=== PATIENT | female | born 1995 | race Caucasian/White ===

== ENCOUNTER 2025-04-20 16:05 | Emergency (ER) | payer MEDICAID, SELFPAY ==
[2025-04-20 16:21] VITALS: BP 130/70; PULSE 81; RESP 18; TEMP 37.1; O2SAT 99; BMI 47.5
--- NOTE | 2025-04-20 16:28 | EDNOTE_ITS ---
ED General RME/HPI General Chief complaint: Abdominal Pain Stated complaint: ABD PAIN, NAUSEA AND DIZZINESS X 3DAYS, 7 WEEKS P Time Seen by Provider: 04/20/25 16:25 Arrival date/time: 04/20/25 16:05 CC Generalized abdominal pain HPI patient is a G4, P3 at estimated 7 weeks. Denies nausea vomiting back pain painful urination bloody urination vaginal discharge or vaginal bleeding. Dr. Cotton is the assigned [facility] she has not seen OB up to this point. No other complaints Related Data Previous Rx's ?Medication ?Instructions ?Recorded docusate sodium 100 mg capsule 100 mg PO BID PRN const ipation #14 07/16/18 caps ibuprofen 400 mg tablet 800 mg (2 x 400 mg) PO Q8H P RN See 07/16/18 Comments #30 tabs cyclobenzaprine 5 mg tablet 5 mg PO TID PRN muscle spa sm #14 10/26/19 tabs ibuprofen 800 mg tablet 800 mg PO TID PRN pain #30 t abs 10/26/19 cyclobenzaprine 5 mg tablet 5 mg PO TID PRN muscle spa sm #20 02/22/21 tabs naproxen 500 mg tablet 500 mg PO BID PRN pain #30 t abs 02/22/21 Allergies Allergy/AdvReac Type Severity Reaction Status Date / Time morphine Allergy Intermediate RASH Verified 04/20/25 16:10 Penicillins Allergy Intermediate SWELLING & Verified 04/20/25 16:10 RASH milk AdvReac Mild UPSET Verified 04/20/25 16:10 STOMACH, CRAMPS Review of Systems Review of Systems Narrative Review of Systems: GEN: No fever, no chills, no weight loss EYES: No discharge, no visual changes, no pain HEENT: No ear pain, no congestion, no sore throat PULM: No shortness of breath, no cough, no congestion CV: No chest pain, no dyspnea on exertion, no palpitations GI: No nausea, no vomiting, no diarrhea, + pain, no constipation : No frequency, no urgency, no dysuria MUSC/SKEL: No joint pain, no back pain SKIN: No rash PSYCH: No hallucinations, no depression HEME/LYMPH: No easy bleeding or bruising tendencies NEURO: No weakness, no headache Past Medical History Past Medical History NEUROLOGIC: Negative Neurological Disorders CARDIAC: Negative Cardiac Disorders or Congestive Heart Failure RESPIRATORY: Positive Asthma; Negative Chronic Obstructive Pulmonary Disease (COPD) GASTROINTESTINAL: Negative Gastrointestinal Disorders GENITOURINARY: Negative Genitourinary Disorders or Renal Disease REPRODUCTIVE: Positive Previous Pregnancies MUSCULOSKELETAL: Negative Musculoskeletal Disorders ENDOCRINE: Negative Endocrine Disorders, Diabetes Mellitus Type 1 or Diabetes Mellitus Type 2 HEMATOLOGIC: Negative Blood Disorders PSYCHO/SOCIAL: Positive Recreational Drug Use OTHER HISTORY: Positive Hospitalization; Negative Autoimmune Disease Family History FAMILY HISTORY: Positive Family Cardiac Disorders, Family Gastrointestinal Problems and Family Cancer; Negative Family Psychiatric Problems, Family Respiratory Disorders, Family Surgery or Family Anesthesia Reaction Surgical History SURGICAL: Negative Section Social History SMOKING STATUS: Never smoker SECOND HAND EXPOSURE: Yes SUBSTANCE USE: marijuana ED Exam Narrative Physical exam: [General: Morbidly obese not in any acute distress Head normocephalic HEENT: Within acceptable limits Neck is supple nontender Chest equal chest rise nontender to palpation Respiratory: Clear to auscultation no wheezes crackles or rubs CV: Rate rhythm is regular no murmurs rubs or clicks Abdomen is distended secondary to body habitus soft, diffuse generalized tenderness, no reflexive guarding no rebound tenderness. No masses positive bowel sounds all 4 quadrants Back: No CVA tenderness no spinous process tenderness from cervical spine thoracic and lumbar spine Skin: Intact no petechiae rash induration ulceration or crepitus Extremities: Moving all extremity against resistance cap refill less than 2 seconds neurosensory intact Neuro: Awake alert oriented x3 Glascow coma 15 no focal deficits] Course Quality Measures none Orders Category Date Time Status US OB transvaginal Stat Exams 04/20/25 16:56 Completed CBC Stat Lab 04/20/25 16:40 Completed CMP [Comprehensive Metabolic Panel] Stat Lab 04/20/25 16:40 Completed Lipase Stat Lab 04/20/25 16:40 Completed Urinalysis Stat Lab 04/20/25 17:10 Completed Vital Signs Vital signs: Vital Signs Temperature 98.8 F 04/20/25 16:21 Pulse Rate 81 04/20/25 16:21 Respiratory Rate 18 04/20/25 16:21 Blood Pressure 130/70 04/20/25 16:21 Pulse Oximetry (%) 99 04/20/25 16:21 Oxygen Delivery Method Room Air 04/20/25 16:21 Discharge Plan Plan Patient Disposition: HOME (Self Care) Patient condition on transfer: Stable Prescriptions/Referrals Prescriptions/Med Rec: No Action ibuprofen 400 mg Tablet 800 mg PO Q8H PRN (Reason: See Comments) Qty: 30 0RF docusate sodium 100 mg Capsule 100 mg PO BID PRN (Reason: constipation) Qty: 14 0RF ibuprofen 800 mg tablet 800 mg PO TID PRN (Reason: pain) Qty: 30 0RF cyclobenzaprine 5 mg tablet 5 mg PO TID PRN (Reason: muscle spasm) Qty: 14 0RF naproxen 500 mg tablet 500 mg PO BID PRN (Reason: pain) Qty: 30 0RF cyclobenzaprine 5 mg tablet 5 mg PO TID PRN (Reason: muscle spasm) Qty: 20 0RF Referrals: No Primary/Family,Physician [Primary Care Provider] - In 1 week Problem List Clinical Impression: Twin Patient/Caregiver Discharge Instructions Education Materials: Understanding Multiple Additional Instructions: Follow-up with your [facility] as stated in 3 days. Avoid heavy lifting avoid strenuous exercise. Print Language: Swedish Stand Alone Forms: [employer] Award Info., Work/School Release, Patient Portal Info Letter PA/CHARLY Supervising Physician PA/MANAGER PATIENT Supervising Physician: Cal Johnson ENP [facility] Clinical Information Provided by: patient Medical Records reviewed [facility] Labs/Rad/Tests considered, not ordered None Chronic Illness/Social Conditions Explain: Obesity Labs Labs: interpreted by al Lab(s) Interpretation(s): CBC shows no acute leukocytosis anemia thrombocytopenia CMP shows no significant electrolyte imbalances renal impairment transaminitis or T. bili elevation. Imaging Imaging interpretation: interpreted by al Imaging Interpretation(s): Twin gestational sacs.
--- NOTE | 2025-04-20 16:56 | XR_ITS ---
Examination: OB Transvaginal ultrasound of the pelvis, complete Technique: Transvaginal sonographic images pelvis performed using willoughby scale imaging Exam date and time: April 20, 2025, 1654 hours INDICATIONS: Mid abdominal pain beginning 3 days ago FINDINGS: Uterus 9.5 cm Twin intrauterine gestations, 2 gestational sacs, 2 yolk sacs Baby A pole 0.3 cm corresponds to 6-week 0-day gestational age Cardiac motion 119 bpm Baby B CRL 0.3 cm corresponds to 5 weeks 6 days gestational age,. Cardiac motion 112 bpm Ovaries obscured by bowel gas IMPRESSION: Viable twin intrauterine gestations
[2025-04-20 17:12] LABS: Basophils # (Auto) 0.0 Thou/mm3 (0.0-0.2); Basophils % (Auto) 0 % (0-2.5); Eosinophils # (Auto) 0.1 Thou/mm3 (0.0-0.5); Eosinophils % (Auto) 1 % (0-10); Hematocrit 39.4 % (36.0-46.0); Hemoglobin 13.0 g/dL (12.0-16.0); Immature Granulocytes Auto 0.04 Thou/mm3 (0.00-0.00); Lymphocytes # (Auto) 2.8 Thou/mm3 (1.0-4.8); Lymphocytes % (Auto) 30 % (10-50); Mean Corpuscular HGB Conc 33.0 g/dl (31.0-37.0); Mean Corpuscular Hemoglobin 28.6 pg (25.0-35.0); Mean Corpuscular Volume 87 fL (80-100); Monocytes # (Auto) 0.6 Thou/mm3 (0.0-0.8); Monocytes % (Auto) 6 % (0-12); Neutrophils # (Auto) 5.9 Thou/mm3 (1.8-7.7); Neutrophils % (Auto) 62 % (37-80); Nucleated Red Blood Cell # 0.00 Thou/mm3 (0.00-0.00); Nucleated Red Blood Cell % 0 /100 WBC (0); Platelet Count 200 Thou/mm3 (140-440); RDW Standard Deviation 40.2 fL (36.4-46.3); Red Blood Count 4.54 Miln/mm3 (4.00-5.20); White Blood Count 9.5 Thou/mm3 (3.6-11.0)
[2025-04-20 17:20] LABS: Collection Type, Urine Clean Catch
[2025-04-20 17:34] LABS: Alanine Aminotransferase 45 U/L (10-49); Albumin, Serum 4.6 gm/dL (3.5-5.0); Albumin/Globulin Ratio 1.8 (1.2-2.2); Alkaline Phosphatase 78 U/L (46-116); Anion Gap 11 (7-16); Aspartate Amino Transferase 24 U/L (0-34); BUN/Creatinine Ratio 10 Ratio (12-20); Bilirubin,Total 0.2 mg/dL (0.3-1.2); Blood Urea Nitrogen 7 mg/dL (9-23); Calcium 9.4 mg/dL (8.3-10.6); Calcium (Corrected) 9.4 mg/dL (8.5-10.1); Carbon Dioxide 23.4 mMol/L (20.0-31.0); Chloride 106 mMol/L (98-107); Creatinine (Component) 0.7 mg/dL (0.6-1.3); Estimated Creatinine Clearance 189.4 mL/min (>60); Globulin 2.6 gm/dL (2.3-3.5); Glucose 102 mg/dL (74-106); Lipase 30 U/L (12-53); Osmolality,Calculated 277 (275-295); Potassium 3.7 mMol/L (3.4-5.1); Sodium 140 mMol/L (136-145); Total Protein 7.2 gm/dL (5.7-8.2); eGFR > 60 See Note
[2025-04-20 17:52] LABS: Bacteria,Urine Rare; Bilirubin,Urine Negative (Negative); Blood,Urine Negative (Negative); Clarity,Urine Clear (Clear/Hazy); Color,Urine Lt-Yellow (Lt Yel-Yel); Glucose, Urine Negative (Negative); Ketones,Urine Trace (Negative); Leukocyte Esterase,Urine Negative (Negative); Nitrite,Urine Negative (Negative); PH,Urine 6.0 (5.0-7.0); Protein,Urine Negative (Neg - Trace); RBC,Urine 2 /hpf (0-3); Specific Gravity,Urine 1.018 (1.001-1.035); Squamous Epithelial Cell,Urine 1 /hpf (0-5); Urobilinogen,Urine Negative mg/dL (0.0-1.0); WBC,Urine 1 /hpf (0-5)
[2025-04-20 18:02] VITALS: BP 125/92; PULSE 70; RESP 19; TEMP 36.8; O2SAT 98
[2025-04-20 18:10] VITALS: BP 125/92; PULSE 70; RESP 16; TEMP 36.8; O2SAT 98
== END 2025-04-20 18:11 | disposition home or self-care (01) ==
PROVIDERS: Registered Nurse General Practice; Emergency Provider Family Medicine; PCP Family Medicine
DX: O26.899 Other specified pregnancy related conditions, unspecified trimester (principal); O30.009 Twin pregnancy, unspecified number of placenta and unspecified number of amniotic sacs, unspecified trimester; O99.210 Obesity complicating pregnancy, unspecified trimester; R10.9 Unspecified abdominal pain
CPT/HCPCS: 36415; 76817; 80053; 81001; 83690; 85025; 99283

== ENCOUNTER 2025-04-23 10:13 | Outpatient (AMB) | payer MEDICAID, SELFPAY ==
--- NOTE | 2025-04-23 10:16 | AMB.OBINITIA ---
Vital Signs 04/23/25 10:40 Height 1.78 m Height Method Stated Weight 147.077 kg Weight Measurement Method Standing Scale BMI 46.4 BP 123/89 H Blood Pressure Source Automatic Cuff Blood Pressure Location Left Upper Arm Position Sitting Respiration 18 Pulse 96 Pulse Source Monitor Temp 97.2 F Temp Source Oral Pulse Oximetry (%) 98 Oxygen Delivery Method Room Air Allergies/Home Meds Allergies & Medications Allergies morphine Allergy (Intermediate, Verified 04/23/25 11:59) RASH Penicillins Allergy (Intermediate, Verified 04/23/25 11:59) SWELLING & RASH milk Adverse Reaction (Mild, Verified 04/23/25 11:59) UPSET STOMACH, CRAMPS Intake Visit Data Collection New Patient or Established: Established Patient (seen at [facility] within 3 years) Reason for Visit:: obi Seen by Clinical Staff ONLY (RN/MA): No Engineer Assistant Required: No Do You Feel Safe at Home: Yes Authorities Contacted: N/A PCP or OBGYN visit in last 3 months: Yes Date of Last PCP or OBGYN visit: 04/20/25 Hx Now: Yes Are you currently on any form of Control: No Last menstrual period: 03/05/25 Pain Present Currently: Yes Pain Location: Abdomen Pain Scale Used: Tyler-Bradford/Numerical Pain scale:: 3 Smoking Status Smoking Status: Never smoker Immunizations Flu Vaccine in the Last 12 Months: Yes Flu Vaccine Exclusion Criteria: No Exclusion Criteria Questionnaires Covid-19 Vaccine Questionnaire Has patient been vacinated for Covid-19 Have you been vacinated for Covid-19: No PHQ-9 PHQ-2 Over the last 2 weeks, how often have you been bothered by any of the following problems? 1. Little interest or pleasure in doing things: not at all 2. Feeling down, depressed, or hopeless: not at all Total score: 0 PHQ-9 3. Trouble falling or staying asleep, or sleeping too much: Not at all 4. Feeling tired or having little energy: Not at all 5. Poor appetite or overeating: Not at all 6. Feeling bad about yourself - or that you are a failure or have let yourself or your family down: Not at all 7. Trouble concentrating on things, such as reading the newspaper or watching television: Not at all 8. Moving or speaking so slowly that other people could have noticed? - Or the opposite - being so fidgety or restless that you have been moving around a lot more than usual: not at all 9. Thoughts that you would be better off or of hurting yourself in some way: Not at all Total score: 0 If you checked off any problems, how difficult have these problems made it for you to do your work, take care of things at home, or get along with other people?: not difficult at all Source: Developed by Drs. Gurinder Newton, Carey Caba, Sly Whalen and colleagues, with an educational jayna from [employer]. Depression screen completed yes Social History Living Situation History Marital Status: Single Lives With: Family Housing: mobile home Tobacco History Smoking Status: Never smoker Packs per Day: 1 Number of Cigars Per Week: 28 Second Hand Smoke Exposure: Yes Alcohol History Alcohol Intake: Current (social) Substance Use History Substance Use: thc Domestic Abuse History Do You Feel Safe at Home: Yes OB Ultrasound OB Ultrasound Ultrasound technique: transvaginal Gestational sac assessment: Presence, location, size, shape: [facility] [address] [place] [address] [facility] Report Signed Patient: WILLARD ALONZO [facility]. Record#: [id number] Birthdate: 1995 Age/Sex: 29 / F Location: [facility] Attending Dr: Ordering Physician: Cal Johnson NP Date of Service: 04/20/25 Procedure(s): US OB transvaginal Accession Number(s): [id number] cc: Cal Johnson NP; Henri Holden MD; NO PRIMARY/FAMILY,PHYSICIAN~ Examination: OB Transvaginal ultrasound of the pelvis, complete Technique: Transvaginal sonographic images pelvis performed using willoughby scale imaging Exam date and time: April 20, 2025, 1654 hours INDICATIONS: Mid abdominal pain beginning 3 days ago FINDINGS: Uterus 9.5 cm Twin intrauterine gestations, 2 gestational sacs, 2 yolk sacs Baby A pole 0.3 cm corresponds to 6-week 0-day gestational age Cardiac motion 119 bpm Baby B CRL 0.3 cm corresponds to 5 weeks 6 days gestational age,. Cardiac motion 112 bpm Ovaries obscured by bowel gas IMPRESSION: Viable twin intrauterine gestations Dictated By: Henri Holden MD Signed By: <Electronically signed by Henri Holden MD in OV> 04/20/251727 DD/ 26 TD/TT: 04/20/251726 Retail Custodial Associate: REBEKA BUSINESS OPERATIONS MANAGER: Past Medical History Past Medical History: No Hx Neurological Disorders, No Hx Cardiac Disorders, No Hx Blood Disorders, No Hx Gastrointestinal Disorders, No Hx Renal Disease, No Hx Diabetes Mellitus Type 1 and No Hx Diabetes Mellitus Type 2 OB Initial Visit Menstrual History Menstrual reliability: definite Flow: normal Menstrual regularity: regular Monthly: Yes Age at menarche: 13 On control pills at conception: No Associated symptoms (LMP): Reports amenorrhea, nausea, vomiting and fatigue Details: LMP 03/05/2025 c/w 7 weeks and by EVS on 04/20/2025 she is 6.3 weeks today OB History : 4 Para: 3 Hx # Pregnancies: 0 Hx Total # of Abortions (Spontaneous & Elective): 0 # of Living Children: 3 Delivery History 1st : Child's name: MARIAM LOUISA date: 06/24/13 sex: male Gestational age at delivery (weeks): 40 Delivery type: vaginal History of depression before or after : No 2nd : Child's name: MIGUEL FRANCISCO date: 12/30/14 sex: male Gestational age at delivery (weeks): 37 Delivery type: vaginal History of depression before or after : No Additional comments: PATIENT WAS USING SUBSTANCES WAS SENT OVER FOR ENDED UP HAVING VAGINAL AND VACCUM 3rd : Child's name: MANJEET FRANCISCO date: 07/15/18 sex: female Gestational age at delivery (weeks): 41 Delivery type: vaginal Delivery complications: INDUCTION History of depression before or after : No Infection History & Risk Evaluation History of STDs: gonorrhea HIV risk evaluation: low risk Hepatitis B risk evaluation: low risk Patient or partner has history of Genital Herpes: No Varicella/chicken pox status: immunized Genetic Screening & History Genetic Screening/Teratology Counseling - Includes patient, baby's father, or anyone in either family with: 1. Patient's age 35 years or older as of estimated date of delivery: No 2. Thalassemia (Maori, Iraqi, Mediterranean, or Background); MCV less than 80: No 3. Neural Tube Defect (Meningomyelocele, Spina Bifida, or Anencephaly): No 4. Congenital Heart Defect: No 5. Down Syndrome: No 6. Marc-Sachs (Ashkenazi Gnosticist, Cajun, Lithuanian Mauritian): No 7. Janice Disease (Ashkenazi Gnosticist): No 8. Familial Dysautonomia (Ashkenazi Gnosticist): No 9. Sickle Cell Disease or Trait (): No 10. Hemophilia or other blood disorders: No 11. Muscular Dystrophy: No 12. Cystic Fibrosis: No 13. Kirkland's Chorea: No 14. Mental Retardation/Autism: No 15. Other inherited genetic or chromosomal disorder: No 16. Maternal Metabolic Disorder (EG,TYPE 1 Diabetes, PKU): No 17. Patient or baby's father had a child with defects not listed above: No 18. Recurrent loss or a stillbirth: No 19. Medications (including supplements, vitamins, herbs or otc drugs)/illicit/recreational drugs/alcohol since last menstrual period: No 20. Any other: No Infection History 1. Live with someone with TB or exposed to TB: No 2. Rash or viral illness since last menstrual period: No 3. Hepatitis B,C: No 4. History of STD: gonorrhea and chlamydia Other (see comments) Source: [employer] Review of Systems Review of Systems Systems Reviewed: All systems reviewed, normal except as documented Constitutional Constitutional: Reports fatigue Gastrointestinal Gastrointestinal: Reports nausea and Reports vomiting Genitourinary Genitourinary: Reports amenorrhea Endocrine Endocrine: Reports fatigue Exam Narrative Physical exam: Alert and oriented x 3 no shortness of breath Pain no chest pain no palpitations Chest clear bilaterally no additional sounds, no wheezing no rales CVS regular rate and rhythm No CVAT Abdomen nontender, normal bowel sounds No guarding no rigidity No hernias pelvic exam done and pap smear obtained and vaginal c/s Office Procedures OBC Clinic LOC & Office Proc's Nursing/Assessment Patient Status: Established Patient OB Clinic Nursing Assessment: Medication Reconciliation, Update PMH in EMR and Vital Signs OB Clinic Coordination of Care: Consent,records obtained, informed consent, Education Simp Pt/Fam, Results/Orders obtained and Staff clarify orders Special Needs: Heart tones Miscellaneous Interventions: Pelvic/Pap Smear Set up Established Patient Charge Established Patient Point Assignment: 115 Established Patient Point Charge: EP Level 3 (80-115) Assessment & Plan Diagnosis / Problem List (1) Twin : Status: Acute Qualifiers: Multiple gestation type: dichorionic and diamniotic Trimester: first trimester Qualified Code(s): O30.041 - Twin , dichorionic/diamniotic, first trimester Plan: pelvic exam done and pap smear and vaginal c/s obtained today (2) History of cannabis abuse: Status: Acute Additional Plan To ED for iv hydration and evaluation for hyperemesis labs next visit and NIPT and Carrier testing stop Cannabis use called in [place]
[2025-04-23 10:40] VITALS: BP 123/89; PULSE 96; RESP 18; TEMP 36.2; O2SAT 98; BMI 46.4
== END 2025-04-23 11:40 | disposition home or self-care (01) ==
LOC: HODSOBC 10:13
PROVIDERS: Supervising Provider Obstetrics & Gynecology; Visit Provider Obstetrics & Gynecology
DX: O09.891 Supervision of other high risk pregnancies, first trimester (principal); O30.001 Twin pregnancy, unspecified number of placenta and unspecified number of amniotic sacs, first trimester; O99.321 Drug use complicating pregnancy, first trimester; F12.10 Cannabis abuse, uncomplicated; Z3A.01 Less than 8 weeks gestation of pregnancy; Z88.5 Allergy status to narcotic agent; Z88.0 Allergy status to penicillin; Z91.0110 Allergy to milk products, unspecified
CPT/HCPCS: 99213; G0463

== ENCOUNTER 2025-04-23 11:56 | Emergency (ER) | payer MEDICAID, SELFPAY ==
[2025-04-23 11:57] VITALS: BMI 32.3
--- NOTE | 2025-04-23 12:34 | EDNOTE_ITS ---
<Statement entered by Johana Woody MD - 04/24/25 12:35> As co-signing physician, I was present and available for consult prn. I concur with the plan and care as documented by the midlevel provider. Nausea/Vomit./Diarrhea-RME/HPI General Chief complaint: Nausea/Vomiting/Diarrhea Stated complaint: VOMITING 6WKS PREG Time Seen by Provider: 04/23/25 12:33 Source: patient Arrival date/time: 04/23/25 11:56 29-year-old female with no known medical history presents to the emergency room with a chief complaint of vomiting and abdominal cramping x 2 days. Patient is currently 6 weeks . Mode of arrival: ambulatory Limitations: no limitations Related Data Previous Rx's ?Medication ?Instructions ?Recorded docusate sodium 100 mg capsule 100 mg PO BID PRN const ipation #14 07/16/18 caps ibuprofen 400 mg tablet 800 mg (2 x 400 mg) PO Q8H P RN See 07/16/18 Comments #30 tabs cyclobenzaprine 5 mg tablet 5 mg PO TID PRN muscle spa sm #14 10/26/19 tabs ibuprofen 800 mg tablet 800 mg PO TID PRN pain #30 t abs 10/26/19 cyclobenzaprine 5 mg tablet 5 mg PO TID PRN muscle spa sm #20 02/22/21 tabs naproxen 500 mg tablet 500 mg PO BID PRN pain #30 t abs 02/22/21 doxylamine 10 mg-pyridoxine (vit 1 tab PO TID #90 tabs 04/23/25 B6) 10 mg tablet,delayed release (Diclegis) ondansetron 4 mg disintegrating 4 mg PO Q8H PRN nausea and 04/23/25 tablet vomiting #28 tabs ondansetron HCl 4 mg tablet 4 mg PO Q6H #30 tabs 04/23 Allergies Allergy/AdvReac Type Severity Reaction Status Date / Time morphine Allergy Intermediate RASH Verified 04/23/25 11:59 Penicillins Allergy Intermediate SWELLING & Verified 04/23/25 11:59 RASH milk AdvReac Mild UPSET Verified 04/23/25 11:59 STOMACH, CRAMPS Review of Systems Review of Systems Systems Reviewed: All systems reviewed, normal except as documented Constitutional Constitutional: Reports system reviewed and no additional complaints, except as documented, Denies fatigue, Denies fever(s), Denies headache(s) and Denies weakness Eyes Eyes: Reports system reviewed and no additional complaints, except as documented, Denies blurry vision and Denies change in vision ENT Ears, Nose, Mouth, and Throat: Reports system reviewed and no additional complaints, except as documented, Denies otalgia, Denies headache(s), Denies nasal congestion, Denies throat swelling and Denies vertigo Cardiovascular Cardiovascular: Reports system reviewed and no additional complaints, except as documented, Denies chest pain, Denies dyspnea and Denies dyspnea on exertion Respiratory Respiratory: Reports system reviewed and no additional complaints, except as documented, Denies chest congestion, Denies cough, Denies dyspnea, Denies dyspnea on exertion and Denies wheezing Gastrointestinal Gastrointestinal: Reports system reviewed and no additional complaints, except as documented, Denies abdominal pain, Denies cramping, Denies nausea and Denies vomiting Genitourinary Genitourinary: Reports system reviewed and no additional complaints, except as documented Musculoskeletal Musculoskeletal: Reports system reviewed and no additional complaints, except as documented and Denies back pain Integumentary/Breasts Skin/Breast: Reports system reviewed and no additional complaints, except as documented and Denies wounds Neurologic Neurologic: Reports system reviewed and no additional complaints, except as documented, Denies confusion, Denies headache(s), Denies lack of coordination, Denies vertigo and Denies weakness Psychiatric Psychiatric: Reports system reviewed and no additional complaints, except as documented, Denies anxiety, Denies confusion, Denies depression, Denies paranoia, Denies suicidal ideation and Denies tactile hallucinations Endocrine Endocrine: Reports system reviewed and no additional complaints, except as documented and Denies fatigue Hematologic/Lymphatic Hematologic/Lymphatic: Reports system reviewed and no additional complaints, except as documented and Denies lymphadenopathy Allergic/Immunologic Allergic/Immunologic: Reports system reviewed and no additional complaints, except as documented, Denies throat swelling, Denies urticaria and Denies wheezing ED Exam General Limitations: Present no limitations General appearance: Present alert and in no apparent distress Head Head exam: Present atraumatic Eye Eye exam: Present normal appearance, PERRL and EOMI ENT ENT exam: Present normal exam, normal oropharynx and mucous membranes moist Neck Neck exam: Present normal inspection, full ROM and trachea midline Chest Chest inspection: Present normal inspection and symmetric chest wall rise Respiratory Respiratory exam: Present normal lung sounds bilaterally Cardiovascular Cardiovascular exam: Present regular rate, normal rhythm and normal heart sounds Abdominal Exam Abdominal exam: Present soft and normal bowel sounds Extremities Exam Extremities exam: Present normal inspection and full ROM Back Exam Back exam: Present normal inspection and full ROM Neurological Exam Neurological exam: Present alert, oriented X3 and CN II-XII intact Psychiatric Psychiatric exam: Present normal affect and normal mood Skin Skin exam: Present warm, dry, intact and normal color Course Quality Measures none Orders Category Date Time Status CBC Stat Lab 04/23/25 12:56 Completed CMP [Comprehensive Metabolic Panel] Stat Lab 04/23/25 12:56 Completed Lipase Stat Lab 04/23/25 12:56 Completed UA [Urinalysis] Stat Lab 04/23/25 13:30 Completed Urine Culture Stat Lab 04/23/25 13:27 Received Ondansetron Odt [Zofran Odt] Med 04/23/25 12:33 Discontinued 4 mg PO X1 ONE Vital Signs Vital signs: Vital Signs Temperature 98.2 F 04/23/25 12:39 Pulse Rate 76 04/23/25 12:39 Respiratory Rate 18 04/23/25 12:39 Blood Pressure 115/83 04/23/25 12:39 Pulse Oximetry (%) 99 04/23/25 12:39 Oxygen Delivery Method Room Air 04/23/25 12:39 Nausea/Vomiting/Diarrhea MDM Narrative MDM Narrative:: 29-year-old female with no known medical history presents to the emergency room with a chief complaint of vomiting and abdominal cramping x 2 days. Patient is currently 6 weeks . Patient is hemodynamically stable and in no apparent distress Physical examination shows some mild abdominal cramping to the lower abdominal area and epigastric area. Patient states this is mostly from all the vomiting she has been having. Patient was given Zofran and reevaluated in 45 minutes with significant improvement to her symptoms. The patient was able to tolerate fluids and was able to tolerate cookies. Patient was discharged and educated to follow-up with primary care provider in the next 24 to 48 hours and return to the emergency room for any evidence of worsening signs or symptoms Patient data External records reviewed:: [facility] previous records Clinical information provided by:: patient Social determinants that could affect healthcare access:: none Patient has the following chronic illnesses:: No chronic illness How is presenting disease/condition affected by chronic disease/condition?: no chronic disease Evaluation data The following diagnostics were reviewed and interpreted by me:: lab results and radiology exam(s) Lab and/or radiology exams considered but not ordered:: Labs and radiology exams considered and ordered Interpretation Summary: N/A Medications / Prescriptions Medications / Prescriptions considered but not ordered:: Medication given Medication administrations:: Medication Administration History Discontinued Medications Ondansetron HCl (Ondansetron Odt 4 Mg Tabrap) 4 mg PO X1 ONE; Protocol Stop: 04/23/25 12:34 Last Admin: 04/23/25 13:17 Dose: 4 mg Documented By: Medication given Consultations Consultation(s) initiated? (list below): No Diagnosis Nausea Differential Diagnosis: gastroenteritis, dehydration and other (Hyperemesis gravidarum) Most likely diagnosis given after review of the tests above:: Hyperemesis gravidarum Admission Indicated Admission indicated?: not indicated Admission Request Was there a request for admission?: No Disposition Plan Disposition Plan: Discharge Discharge Attestation Discharge Attestation: The patient and all family members were given an opportunity to ask questions and understood the discharge instructions. Discharge instructions specifically effects, indications for sooner follow up or return to the emergency department, and the expected course of current diagnosis. Patient condition: Stable Discharge Plan Plan Patient Disposition: HOME (Self Care) Prescriptions/Referrals Prescriptions/Med Rec: New ondansetron 4 mg tablet,disintegrating 4 mg PO Q8H PRN (Reason: nausea and vomiting) Qty: 28 0RF No Action ondansetron HCl 4 mg tablet 4 mg PO Q6H Qty: 30 0RF doxylamine-pyridoxine (vit B6) [Diclegis] 10-10 mg tablet,delayed release (DR/EC) 1 tab PO TID Qty: 90 0RF ibuprofen 400 mg Tablet 800 mg PO Q8H PRN (Reason: See Comments) Qty: 30 0RF docusate sodium 100 mg Capsule 100 mg PO BID PRN (Reason: constipation) Qty: 14 0RF ibuprofen 800 mg tablet 800 mg PO TID PRN (Reason: pain) Qty: 30 0RF cyclobenzaprine 5 mg tablet 5 mg PO TID PRN (Reason: muscle spasm) Qty: 14 0RF naproxen 500 mg tablet 500 mg PO BID PRN (Reason: pain) Qty: 30 0RF cyclobenzaprine 5 mg tablet 5 mg PO TID PRN (Reason: muscle spasm) Qty: 20 0RF Referrals: Jerald Pineda MD [Primary Care Provider, Family Practice] - In 1 week Problem List Clinical Impression: Hyperemesis gravidarum Patient/Caregiver Discharge Instructions Education Materials: ED Hyperemesis Gravidarum Additional Instructions: Please follow-up with your [facility] in the next 24 to 48 hours Medication was sent to your pharmacy please pick it up and take it as indicated For any evidence of worsening signs or symptoms return to the emergency room immediately Print Language: Citizen Of [place] Stand Alone Forms: Allyn Award Info., Work/School Release, Patient Portal Info Letter PA/NEWSWRITER Supervising Physician PA/NEWSWRITER Supervising Physician: Dr. WOODY
[2025-04-23 12:39] VITALS: BP 115/83; PULSE 76; RESP 18; TEMP 36.8; O2SAT 99
[2025-04-23 13:06] LABS: Basophils # (Auto) 0.0 Thou/mm3 (0.0-0.2); Basophils % (Auto) 0 % (0-2.5); Eosinophils # (Auto) 0.0 Thou/mm3 (0.0-0.5); Eosinophils % (Auto) 0 % (0-10); Hematocrit 38.9 % (36.0-46.0); Hemoglobin 12.6 g/dL (12.0-16.0); Immature Granulocytes Auto 0.04 Thou/mm3 (0.00-0.00); Lymphocytes # (Auto) 2.1 Thou/mm3 (1.0-4.8); Lymphocytes % (Auto) 22 % (10-50); Mean Corpuscular HGB Conc 32.4 g/dl (31.0-37.0); Mean Corpuscular Hemoglobin 28.3 pg (25.0-35.0); Mean Corpuscular Volume 87 fL (80-100); Monocytes # (Auto) 0.7 Thou/mm3 (0.0-0.8); Monocytes % (Auto) 7 % (0-12); Neutrophils # (Auto) 6.9 Thou/mm3 (1.8-7.7); Neutrophils % (Auto) 71 % (37-80); Nucleated Red Blood Cell # 0.00 Thou/mm3 (0.00-0.00); Nucleated Red Blood Cell % 0 /100 WBC (0); Platelet Count 218 Thou/mm3 (140-440); RDW Standard Deviation 40.0 fL (36.4-46.3); Red Blood Count 4.45 Miln/mm3 (4.00-5.20); White Blood Count 9.9 Thou/mm3 (3.6-11.0)
[2025-04-23] MEDS: ONDANSETRON ODT 4 MG TABRAP PO (13:17)
[2025-04-23 13:34] LABS: Alanine Aminotransferase 53 U/L (10-49); Albumin, Serum 4.5 gm/dL (3.5-5.0); Albumin/Globulin Ratio 1.6 (1.2-2.2); Alkaline Phosphatase 84 U/L (46-116); Anion Gap 10 (7-16); Aspartate Amino Transferase 28 U/L (0-34); BUN/Creatinine Ratio 8 Ratio (12-20); Bilirubin,Total 0.3 mg/dL (0.3-1.2); Blood Urea Nitrogen < 5 mg/dL (9-23); Calcium 9.4 mg/dL (8.3-10.6); Calcium (Corrected) 9.4 mg/dL (8.5-10.1); Carbon Dioxide 23.6 mMol/L (20.0-31.0); Chloride 104 mMol/L (98-107); Creatinine (Component) 0.6 mg/dL (0.6-1.3); Estimated Creatinine Clearance 178.9 mL/min (>60); Globulin 2.8 gm/dL (2.3-3.5); Glucose 102 mg/dL (74-106); Lipase 23 U/L (12-53); Osmolality,Calculated 272 (275-295); Potassium 3.7 mMol/L (3.4-5.1); Sodium 138 mMol/L (136-145); Total Protein 7.3 gm/dL (5.7-8.2); eGFR > 60 See Note
[2025-04-23 13:49] LABS: Collection Type, Urine Clean Catch; RBC,Urine 0 /hpf (0-3); WBC,Urine 0 /hpf (0-5)
[2025-04-23 14:28] LABS: Bilirubin,Urine Negative (Negative); Blood,Urine Negative (Negative); Clarity,Urine Clear (Clear/Hazy); Color,Urine Yellow (Lt Yel-Yel); Glucose, Urine Negative (Negative); Ketones,Urine 4+ (Negative); Leukocyte Esterase,Urine Negative (Negative); Nitrite,Urine Negative (Negative); PH,Urine 6.5 (5.0-7.0); Protein,Urine 1+ (Neg - Trace); Specific Gravity,Urine 1.028 (1.001-1.035); Squamous Epithelial Cell,Urine 1 /hpf (0-5); Urobilinogen,Urine 2.0 mg/dL (0.0-1.0)
--- NOTE | 2025-04-23 16:05 | PC.NURSE ---
Pt did not answer.
== END 2025-04-23 16:20 | disposition home or self-care (01) ==
PROVIDERS: Nurse Practitioner Family; Emergency Provider Emergency Medicine; PCP Family Medicine
DX: O21.0 Mild hyperemesis gravidarum (principal); Z3A.01 Less than 8 weeks gestation of pregnancy
CPT/HCPCS: 36415; 80053; 81001; 83690; 85025; 87086; 99283; Q0162

== ENCOUNTER → 2025-04-24 14:29 | Outpatient (AMB) | payer MEDICAID, SELFPAY ==
[2025-04-24 14:40] VITALS: BP 125/85; PULSE 66; RESP 14; TEMP 36.3; O2SAT 98; BMI 46.8
--- NOTE | 2025-04-24 14:40 | OBCLNT_ITS ---
Vital Signs 04/24/25 14:40 Height 1.78 m Height Method Stated Weight 148.041 kg Weight Measurement Method Standing Scale BMI 46.8 BP 125/85 H Blood Pressure Source Automatic Cuff Blood Pressure Location Left Upper Arm Position Sitting Respiration 14 Pulse 66 Pulse Source Monitor Temp 97.4 F Temp Source Oral Pulse Oximetry (%) 98 Oxygen Delivery Method Room Air Allergies/Home Meds Allergies & Medications Allergies morphine Allergy (Intermediate, Verified 04/24/25 14:41) RASH Penicillins Allergy (Intermediate, Verified 04/24/25 14:41) SWELLING & RASH milk Adverse Reaction (Mild, Verified 04/24/25 14:41) UPSET STOMACH, CRAMPS Medication Reconciliation docusate sodium 100 mg capsule 100 mg PO BID PRN constipation #14 caps 07/16/18 [Rx] ibuprofen 400 mg tablet 800 mg (2 x 400 mg) PO Q8H PRN See Comments #30 tabs 07/16/18 [Rx] cyclobenzaprine 5 mg tablet 5 mg PO TID PRN muscle spasm #14 tabs 10/26/19 [Rx] ibuprofen 800 mg tablet 800 mg PO TID PRN pain #30 tabs 10/26/19 [Rx] cyclobenzaprine 5 mg tablet 5 mg PO TID PRN muscle spasm #20 tabs 02/22/21 [Rx] naproxen 500 mg tablet 500 mg PO BID PRN pain #30 tabs 02/22/21 [Rx Confirmed 04/24/25] doxylamine 10 mg-pyridoxine (vit B6) 10 mg tablet,delayed release (Diclegis) 1 tab PO TID #90 tabs 04/23/25 [Rx] ondansetron 4 mg disintegrating tablet 4 mg PO Q8H PRN nausea and vomiting #28 tabs 04/23/25 [Rx Confirmed 04/24/25] ondansetron HCl 4 mg tablet 4 mg PO Q6H #30 tabs 04/23/25 [Rx] Intake Visit Data Collection New Patient or Established: Established Patient (seen at [facility] within 3 years) Reason for Visit:: CARE/ ER FOLLOW UP Seen by Clinical Staff ONLY (RN/MA): No Operator Assistant I Cementing Required: No Do You Feel Safe at Home: Yes Authorities Contacted: N/A PCP or OBGYN visit in last 3 months: Yes Hx Now: Yes Are you currently on any form of Control: No Pain Present Currently: No Pain Scale Used: [place]/Numerical Pain scale:: 0 Smoking Status Smoking Status: Never smoker Immunizations Flu Vaccine in the Last 12 Months: Yes Date of most recent flu vaccination: 04/01/25 Flu Vaccine Exclusion Criteria: Already Received Questionnaires Covid-19 Vaccine Questionnaire Has patient been vacinated for Covid-19 Have you been vacinated for Covid-19: Yes PHQ-9 PHQ-2 Over the last 2 weeks, how often have you been bothered by any of the following problems? 1. Little interest or pleasure in doing things: not at all 2. Feeling down, depressed, or hopeless: not at all Total score: 0 PHQ-9 3. Trouble falling or staying asleep, or sleeping too much: Not at all 4. Feeling tired or having little energy: Not at all 5. Poor appetite or overeating: Not at all 6. Feeling bad about yourself - or that you are a failure or have let yourself or your family down: Not at all 7. Trouble concentrating on things, such as reading the newspaper or watching television: Not at all 8. Moving or speaking so slowly that other people could have noticed? - Or the opposite - being so fidgety or restless that you have been moving around a lot more than usual: not at all 9. Thoughts that you would be better off or of hurting yourself in some way: Not at all Total score: 0 Source: Developed by Drs. Gurinder Newton, Carey Caba, Sly Whalen and colleagues, with an educational jayna from [employer]. Depression screen completed yes Social History Living Situation History Lives With: Family Housing: mobile home Tobacco History Smoking Status: Never smoker Packs per Day: 1 Number of Cigars Per Week: 28 Second Hand Smoke Exposure: Yes Alcohol History Alcohol Intake: Current (social) Substance Use History Substance Use: thc Domestic Abuse History Do You Feel Safe at Home: Yes CHURCH ORGANIST: Past Medical History Past Medical History: No Hx Neurological Disorders, No Hx Cardiac Disorders, No Hx Blood Disorders, No Hx Gastrointestinal Disorders, No Hx Renal Disease, No Hx Diabetes Mellitus Type 1 and No Hx Diabetes Mellitus Type 2 History of Present Illness HPI Narrative Follow upon ER visit from 04/23/2025 twin at 6.1 weeks / did well on Zofran in ED Care OB Visit Log OB Flowsheet Initial Weight: Not Recorded Date -?-?-?-?-?-?-?-?-?-?-?-?- EGA Weight BP Alb Glu CTX Pres Fundal ht FHR Mov Dilation Station Effacement Hx Notes Visit Note 04/23/25 -?-?-?-?-?-?-?-?-?-?-?-?- 6w 3d 147.077 kg 123/89 A -?-?-?-?-?-?-?-?-?-?-?-?- B 04/24/25 -?-?-?-?-?-?-?-?-?-?-?-?- 6w 4d 148.041 kg 125/85 A -?-?--?-?-?-?-?-?-?-?-?-?- B VERENA Calculator Estimated Delivery Date Method Current WG Current Estimate 12/14/25 Ultrasound #1 6w 5d # 2 Notes Visit Date: 04/24/25 Last Updated by: Heather Cotton MD was in ED on 04/23/2025 . did well on Zofran Zofran po called in and also Diclegis and follow up on 05/07/2025 Patient feels better Visit Date: 04/23/25 Last Updated by: Heather Cotton MD 29 years old and with N/V today / was in ED on 04/20/2025 . states she is not keeping anything down she has been smoking weed for a long time , states stopped 2 days ago Us vaginal done 04/20/2025 c/w 6 weeks twin feels weak To go to ED / for assessment for hyperemesis and iv hydration Plan Diclegis and zofran and follow up in 2 to 3 weeks pap smear done today Utreus about 8 to 10 weeks and vaginal c/s taken as well / will Office Procedures OBC Clinic LOC & Office Proc's Nursing/Assessment Patient Status: Established Patient OB Clinic Nursing Assessment: Medication Reconciliation, Update PMH in EMR and Vital Signs OB Clinic Coordination of Care: Complex Care and Chronic Disease 1-5, Consent,records obtained, informed consent, Education Simp Pt/Fam, 1 Ins Authorization, Lab and Imaging orders, Results/Orders obtained and Staff clarify orders Special Needs: Heart tones Established Patient Charge Established Patient Point Assignment: 150 Established Patient Point Charge: EP Level 4 (120-155) Assessment & Plan Diagnosis / Problem List Plan Assessment IUP at 6.1 gestational age in a 29years old G 4 P 3 additional diagnoses Twins and also hyperemesis and doing well on Zofran Plan education/counselling diet medications Diclegis and also Zofran Follow up on 05/07/2025 Additional Plan Follow Up: 2 Weeks (Patient is smiling and feels better )
== END ==
LOC: HODSOBC 14:29
PROVIDERS: Supervising Provider Obstetrics & Gynecology; Visit Provider Obstetrics & Gynecology
DX: O09.891 Supervision of other high risk pregnancies, first trimester (principal); O30.001 Twin pregnancy, unspecified number of placenta and unspecified number of amniotic sacs, first trimester; O21.0 Mild hyperemesis gravidarum; Z3A.01 Less than 8 weeks gestation of pregnancy; Z88.5 Allergy status to narcotic agent; Z88.0 Allergy status to penicillin; Z91.0110 Allergy to milk products, unspecified
CPT/HCPCS: 99214; G0463

== ENCOUNTER 2025-05-07 10:17 | Outpatient (AMB) | payer MEDICAID, SELFPAY ==
--- NOTE | 2025-05-07 10:37 | OBCLNT_ITS ---
Vital Signs 05/07/25 11:15 Height 1.78 m Height Method Stated Weight 156.943 kg Weight Measurement Method Standing Scale BMI 49.5 BP 128/80 Blood Pressure Source Automatic Cuff Blood Pressure Location Left Upper Arm Position Sitting Respiration 18 Pulse 98 Pulse Source Monitor Temp 97.2 F Temp Source Oral Pulse Oximetry (%) 98 Oxygen Delivery Method Room Air Allergies/Home Meds Allergies & Medications Allergies morphine Allergy (Intermediate, Verified 04/24/25 14:41) RASH Penicillins Allergy (Intermediate, Verified 04/24/25 14:41) SWELLING & RASH milk Adverse Reaction (Mild, Verified 04/24/25 14:41) UPSET STOMACH, CRAMPS Medication Reconciliation docusate sodium 100 mg capsule 100 mg PO BID PRN constipation #14 caps 07/16/18 [Rx Confirmed 05/07/25] ibuprofen 400 mg tablet 800 mg (2 x 400 mg) PO Q8H PRN See Comments #30 tabs 07/16/18 [Rx Confirmed 05/07/25] cyclobenzaprine 5 mg tablet 5 mg PO TID PRN muscle spasm #14 tabs 10/26/19 [Rx Confirmed 05/07/25] ibuprofen 800 mg tablet 800 mg PO TID PRN pain #30 tabs 10/26/19 [Rx Confirmed 05/07/25] cyclobenzaprine 5 mg tablet 5 mg PO TID PRN muscle spasm #20 tabs 02/22/21 [Rx Confirmed 05/07/25] naproxen 500 mg tablet 500 mg PO BID PRN pain #30 tabs 02/22/21 [Rx Confirmed 05/07/25] doxylamine 10 mg-pyridoxine (vit B6) 10 mg tablet,delayed release (Diclegis) 1 tab PO TID #90 tabs 04/23/25 [Rx Confirmed 05/07/25] ondansetron 4 mg disintegrating tablet 4 mg PO Q8H PRN nausea and vomiting #28 tabs 04/23/25 [Rx Confirmed 05/07/25] ondansetron HCl 4 mg tablet 4 mg PO Q6H #30 tabs 04/23/25 [Rx Confirmed 05/07/25] Intake Visit Data Collection New Patient or Established: Established Patient (seen at [facility] within 3 years) Reason for Visit:: OBC Seen by Clinical Staff ONLY (RN/MA): No Gas Appliance Servicer Required: No Do You Feel Safe at Home: Yes Authorities Contacted: N/A PCP or OBGYN visit in last 3 months: Yes Date of Last PCP or OBGYN visit: 04/23/25 Hx Now: Yes Are you currently on any form of Control: No Pain Present Currently: No Pain Scale Used: Tyler-Bradford/Numerical Pain scale:: 0 Smoking Status Smoking Status: Never smoker Immunizations Flu Vaccine in the Last 12 Months: No Flu Vaccine Exclusion Criteria: No Exclusion Criteria Questionnaires Covid-19 Vaccine Questionnaire Has patient been vacinated for Covid-19 Have you been vacinated for Covid-19: No PHQ-9 PHQ-2 Over the last 2 weeks, how often have you been bothered by any of the following problems? 1. Little interest or pleasure in doing things: not at all 2. Feeling down, depressed, or hopeless: not at all Total score: 0 PHQ-9 3. Trouble falling or staying asleep, or sleeping too much: Not at all 4. Feeling tired or having little energy: Not at all 5. Poor appetite or overeating: Not at all 6. Feeling bad about yourself - or that you are a failure or have let yourself or your family down: Not at all 7. Trouble concentrating on things, such as reading the newspaper or watching television: Not at all 8. Moving or speaking so slowly that other people could have noticed? - Or the opposite - being so fidgety or restless that you have been moving around a lot more than usual: not at all 9. Thoughts that you would be better off or of hurting yourself in some way: Not at all Total score: 0 If you checked off any problems, how difficult have these problems made it for you to do your work, take care of things at home, or get along with other people?: not difficult at all Source: Developed by Drs. Gurinder Newton, Carey Caba, Sly Whalen and colleagues, with an educational jayna from [employer]. Depression screen completed yes Social History Living Situation History Lives With: Family Housing: mobile home Tobacco History Smoking Status: Never smoker Packs per Day: 1 Number of Cigars Per Week: 28 Second Hand Smoke Exposure: Yes Alcohol History Alcohol Intake: Current (social) Substance Use History Substance Use: thc Domestic Abuse History Do You Feel Safe at Home: Yes CRIMINALIST: Past Medical History Past Medical History: No Hx Neurological Disorders, No Hx Cardiac Disorders, No Hx Blood Disorders, No Hx Gastrointestinal Disorders, No Hx Renal Disease, No Hx Diabetes Mellitus Type 1 and No Hx Diabetes Mellitus Type 2 History of Present Illness HPI Narrative 29 years old and with N/V improved . still taking Zofran as needed / was in ED on 04/20/2025 . states now better , not taking Diclegis made her feel weird she has been smoking weed for a long time , states stopped now Us vaginal done 04/20/2025 c/w 6 weeks twin feels weak To go to ED / for assessment for hyperemesis and iv hydration snf was sent home on 04/20/2025 Plan Diclegis and zofran and follow up in 2 to 3 weeks for labs and also NIPT and carrier screening Pap/HPV and Gc and CT on 04/23/2025 is normal Vaginal c/s positive for Sabi OB Ultrasound OB Ultrasound Ultrasound technique: transvaginal Gestational sac assessment: Presence, location, size, shape: [facility] [address] [place] [address] [facility] Report Signed Patient: WILLARD ALONZO [facility]. Record#: [id number] Birthdate: 1995 Age/Sex: 29 / F Location: [facility] Attending Dr: Ordering Physician: Cal Johnson NP Date of Service: 04/20/25 Procedure(s): US OB transvaginal Accession Number(s): [id number] cc: Cal Johnson NP; Henri Holden MD; NO PRIMARY/FAMILY,PHYSICIAN~ Examination: OB Transvaginal ultrasound of the pelvis, complete Technique: Transvaginal sonographic images pelvis performed using willoughby scale imaging Exam date and time: April 20, 2025, 1654 hours INDICATIONS: Mid abdominal pain beginning 3 days ago FINDINGS: Uterus 9.5 cm Twin intrauterine gestations, 2 gestational sacs, 2 yolk sacs Baby A pole 0.3 cm corresponds to 6-week 0-day gestational age Cardiac motion 119 bpm Baby B CRL 0.3 cm corresponds to 5 weeks 6 days gestational age,. Cardiac motion 112 bpm Ovaries obscured by bowel gas IMPRESSION: Viable twin intrauterine gestations Dictated By: Henri Holden MD Signed By: <Electronically signed by Henri Holden MD in OV> 04/20/251727 DD/ 26 TD/TT: 04/20/251726 Patient Service Technician Pst: [facility] OB Visit Log OB Flowsheet Initial Weight: Not Recorded Date -?-?-?-?-?-?-?-?-?-?-?-?- EGA Weight BP Alb Glu CTX Pres Fundal ht FHR Mov Dilation Station Effacement Hx Notes Visit Note 04/23/25 -?-?-?-?-?-?-?-?-?-?-?-?- 6w 3d 147.077 kg 123/89 A -?-?-?-?-?-?-?-?-?-?-?-?- B 04/24/25 -?-?-?-?-?-?-?-?-?-?-?-?- 6w 4d 148.041 kg 125/85 A -?-?-?-?-?-?-?-?-?-?-?-?- B 05/07/25 -?-?-?-?-?-?-?-?-?-?-?-?- 8w 3d 156.943 kg 128/80 A -?-?-?-?-?-?-?-?-?-?-?-?- B VERENA Calculator Estimated Delivery Date Method Current WG Current Estimate 12/14/25 Ultrasound #1 8w 6d # 2 Notes Visit Date: 05/07/25 Last Updated by: Heather Cotton MD 29 years old with twin N/Vomiting of on Zofran/ Pap/HPV negative from 04/23/2025 and vag c/s positive for sabi but asymptomatic , so colonization and not infection and does not need treatment at this time / needs a root canal and needs note for dental clearance / ordered labs / NIPT and carrier testing h/o weed use obesity Plan follow up in 4 weeks / continue Zofran and also take gummies Visit Date: 04/24/25 Last Updated by: Heather Cotton MD was in ED on 04/23/2025 . did well on Zofran Zofran po called in and also Diclegis and follow up on 05/07/2025 Patient feels better Visit Date: 04/23/25 Last Updated by: Heather Cotton MD 29 years old and with N/V today / was in ED on 04/20/2025 . states she is not keeping anything down she has been smoking weed for a long time , states stopped 2 days ago Us vaginal done 04/20/2025 c/w 6 weeks twin feels weak To go to ED / for assessment for hyperemesis and iv hydration Plan Diclegis and zofran and follow up in 2 to 3 weeks pap smear done today Utreus about 8 to 10 weeks and vaginal c/s taken as well / will Office Procedures OBC Clinic LOC & Office Proc's Nursing/Assessment Patient Status: Established Patient OB Clinic Nursing Assessment: Medication Reconciliation, Update PMH in EMR and Vital Signs OB Clinic Coordination of Care: Consent,records obtained, informed consent, Lab and Imaging orders, Ref for ancillary service and Staff clarify orders Special Needs: Heart tones Established Patient Charge Established Patient Point Assignment: 120 Established Patient Point Charge: EP Level 3 (80-115) Assessment & Plan Diagnosis / Problem List (1) Nausea and vomiting during : Status: Acute Assessment and Plan: continue Zofran and also ordered first trimester labs and also NPT and Carrier screening (2) History of cannabis abuse: Status: Acute Plan: patient states she stopped (3) Twin : Status: Acute Qualifiers: Multiple gestation type: dichorionic and diamniotic Trimester: first trimester Qualified Code(s): O30.041 - Twin , dichorionic/diamniotic, first trimester Plan: plan refer to [facility] for anatomy scan at 15 weeks Assessment and Plan: 29 years with a twin obesity h/o weed use and nausea / on Diclegis and zofran / she did not like Diclegis and taking only zofran will need anatomy scan and follow up with M as twin (4) Tooth abscess: Status: Acute
[2025-05-07 11:15] VITALS: BP 128/80; PULSE 98; RESP 18; TEMP 36.2; O2SAT 98; BMI 49.5
== END 2025-05-07 11:19 | disposition home or self-care (01) ==
LOC: HODSOBC 10:17
PROVIDERS: Supervising Provider Obstetrics & Gynecology; Visit Provider Obstetrics & Gynecology
DX: O09.891 Supervision of other high risk pregnancies, first trimester (principal); O30.001 Twin pregnancy, unspecified number of placenta and unspecified number of amniotic sacs, first trimester; O21.9 Vomiting of pregnancy, unspecified; O99.211 Obesity complicating pregnancy, first trimester; O99.321 Drug use complicating pregnancy, first trimester; F12.10 Cannabis abuse, uncomplicated; Z3A.08 8 weeks gestation of pregnancy; Z88.5 Allergy status to narcotic agent; Z88.0 Allergy status to penicillin
CPT/HCPCS: 99213; G0463

== ENCOUNTER 2025-06-04 10:13 | Outpatient (AMB) | payer MEDICAID, SELFPAY ==
--- NOTE | 2025-06-04 10:31 | OBCLNT_ITS ---
Vital Signs 06/04/25 10:35 Height 1.78 m Height Method Stated Weight 148.495 kg Weight Measurement Method Standing Scale BMI 46.8 BP 119/83 Blood Pressure Source Automatic Cuff Blood Pressure Location Left Upper Arm Position Sitting Respiration 18 Pulse 88 Pulse Source Monitor Temp 97.2 F Temp Source Oral Pulse Oximetry (%) 98 Oxygen Delivery Method Room Air Allergies/Home Meds Allergies & Medications Allergies morphine Allergy (Intermediate, Verified 06/04/25 10:36) RASH Penicillins Allergy (Intermediate, Verified 06/04/25 10:36) SWELLING & RASH milk Adverse Reaction (Mild, Verified 06/04/25 10:36) UPSET STOMACH, CRAMPS Medication Reconciliation docusate sodium 100 mg capsule 100 mg PO BID PRN constipation #14 caps 07/16/18 [Rx Confirmed 06/04/25] ibuprofen 400 mg tablet 800 mg (2 x 400 mg) PO Q8H PRN See Comments #30 tabs 07/16/18 [Rx Confirmed 06/04/25] cyclobenzaprine 5 mg tablet 5 mg PO TID PRN muscle spasm #14 tabs 10/26/19 [Rx Confirmed 06/04/25] ibuprofen 800 mg tablet 800 mg PO TID PRN pain #30 tabs 10/26/19 [Rx Confirmed 06/04/25] cyclobenzaprine 5 mg tablet 5 mg PO TID PRN muscle spasm #20 tabs 02/22/21 [Rx Confirmed 06/04/25] naproxen 500 mg tablet 500 mg PO BID PRN pain #30 tabs 02/22/21 [Rx Confirmed 06/04/25] doxylamine 10 mg-pyridoxine (vit B6) 10 mg tablet,delayed release (Diclegis) 1 tab PO TID #90 tabs 04/23/25 [Rx Confirmed 06/04/25] ondansetron 4 mg disintegrating tablet 4 mg PO Q8H PRN nausea and vomiting #28 tabs 04/23/25 [Rx Confirmed 06/04/25] ondansetron HCl 4 mg tablet 4 mg PO Q6H #30 tabs 04/23/25 [Rx Confirmed 06/04/25] ondansetron 4 mg disintegrating tablet 4 mg PO Q6H PRN nausea and vomiting 30 days #120 tabs 05/17/25 [Rx Confirmed 06/04/25] Immunizations Immunizations Flu Vaccine in the Last 12 Months: Yes Flu Vaccine Exclusion Criteria: Already Received Care OB Visit Log OB Flowsheet Initial Weight: Not Recorded Date -?-?-?-?-?-?-?-?-?-?-?-?- EGA Weight BP Alb Glu CTX Pres Fundal ht FHR Mov Dilation Station Effacement Hx Notes Visit Note 04/23/25 -?-?-?-?-?-?-?-?-?-?-?-?- 6w 3d 147.077 kg 123/89 A -?-?-?-?-?-?-?--?-?-?-?-?- B 04/24/25 -?-?-?-?-?-?-?-?-?-?-?-?- 6w 4d 148.041 kg 125/85 A -?-?-?-?-?-?-?-?-?-?-?-?- B 05/07/25 -?-?-?-?-?-?-?-?-?-?-?-?- 8w 3d 156.943 kg 128/80 A -?-?-?-?-?-?-?-?-?-?-?-?- B 06/04/25 -?-?-?-?-?-?--?-?-?-?-?-?- 12w 3d 148.495 kg 119/83 A 159 -?-?-?-?-?-?-?-?-?-?-?-?- B 157 VERENA Calculator Estimated Delivery Date Method Current WG Current Estimate 12/14/25 Ultrasound #1 12w 3d # 2 Notes Visit Date: 06/04/25 Last Updated by: Heather Cotton MD 29 years old with twin N/Vomiting of is getting better / diamniotic twins / will refer for anatomy scan and also consultation and also order NIPT/ Carrier screen is negative / her Hb aic is normal / follow up in 4 weeks / Plan MSAFP/ and also hepB/ HIV and Abo/Rh and rubella and at that visit if unable to get labs by then / reviewed ;abs and will need the order next visit Visit Date: 05/07/25 Last Updated by: Heather Cotton MD 29 years old with twin N/Vomiting of on Zofran/ Pap/HPV negative from 04/23/2025 and vag c/s positive for sabi but asymptomatic , so colonization and not infection and does not need treatment at this time / needs a root canal and needs note for dental clearance / ordered labs / NIPT and carrier testing h/o weed use obesity Plan follow up in 4 weeks / continue Zofran and also take gummies Visit Date: 04/24/25 Last Updated by: Heather Cotton MD was in ED on 04/23/2025 . did well on Zofran Zofran po called in and also Diclegis and follow up on 05/07/2025 Patient feels better Visit Date: 04/23/25 Last Updated by: Heather Cotton MD 29 years old and with N/V today / was in ED on 04/20/2025 . states she is not keeping anything down she has been smoking weed for a long time , states stopped 2 days ago Us vaginal done 04/20/2025 c/w 6 weeks twin feels weak To go to ED / for assessment for hyperemesis and iv hydration Plan Diclegis and zofran and follow up in 2 to 3 weeks pap smear done today Utreus about 8 to 10 weeks and vaginal c/s taken as well / will Office Procedures OBC Clinic LOC & Office Proc's Nursing/Assessment Patient Status: Established Patient OB Clinic Nursing Assessment: Medication Reconciliation, Update PMH in EMR and Vital Signs OB Clinic Coordination of Care: Consent,records obtained, informed consent, Education Simp Pt/Fam, Lab and Imaging orders, Results/Orders obtained and Staff clarify orders Special Needs: Heart tones Established Patient Charge Established Patient Point Assignment: 110 Established Patient Point Charge: EP Level 3 (80-115) Assessment & Plan Diagnosis / Problem List (1) Twin : Status: Acute Qualifiers: Multiple gestation type: dichorionic and diamniotic Trimester: first trimester Qualified Code(s): O30.041 - Twin , dichorionic/diamniotic, first trimester
[2025-06-04 10:35] VITALS: BP 119/83; PULSE 88; RESP 18; TEMP 36.2; O2SAT 98; BMI 46.8
== END 2025-06-04 10:50 | disposition home or self-care (01) ==
LOC: HODSOBC 10:13
PROVIDERS: Supervising Provider Obstetrics & Gynecology; Visit Provider Obstetrics & Gynecology
DX: O09.891 Supervision of other high risk pregnancies, first trimester (principal); O30.041 Twin pregnancy, dichorionic/diamniotic, first trimester; O21.9 Vomiting of pregnancy, unspecified; Z3A.12 12 weeks gestation of pregnancy; Z88.5 Allergy status to narcotic agent; Z88.0 Allergy status to penicillin; Z91.0110 Allergy to milk products, unspecified
CPT/HCPCS: 99213; G0463

== ENCOUNTER 2025-06-15 16:32 | Emergency (ER) | payer MEDICAID, SELFPAY | END 2025-06-15 17:03 | disposition left against medical advice (07) | LOC: SERX 17:26 | PROVIDERS: Emergency Provider Nurse Practitioner Family | DX: Z53.21 Procedure and treatment not carried out due to patient leaving prior to being seen by health care provider (principal) | CPT/HCPCS: 99281 ==

== ENCOUNTER 2025-07-03 09:22 | Outpatient (AMB) | payer MEDICAID, SELFPAY ==
[2025-07-03 09:48] VITALS: BP 101/72; PULSE 91; RESP 18; TEMP 36.4; O2SAT 96; BMI 47.2
--- NOTE | 2025-07-03 09:48 | OBCLNT_ITS ---
Vital Signs 07/03/25 09:48 Height 1.78 m Height Method Stated Weight 149.685 kg Weight Measurement Method Standing Scale BMI 47.2 BP 101/72 Blood Pressure Source Automatic Cuff Blood Pressure Location Right Upper Arm Position Sitting Respiration 18 Pulse 91 Pulse Source Monitor Temp 97.6 F Temp Source Temporal Artery Scan Pulse Oximetry (%) 96 Oxygen Delivery Method Room Air Allergies/Home Meds Allergies & Medications Allergies morphine Allergy (Intermediate, Verified 07/03/25 09:49) RASH Penicillins Allergy (Intermediate, Verified 07/03/25 09:49) SWELLING & RASH milk Adverse Reaction (Mild, Verified 07/03/25 09:49) UPSET STOMACH, CRAMPS Medication Reconciliation docusate sodium 100 mg capsule 100 mg PO BID PRN constipation #14 caps 07/16/18 [Rx Confirmed 07/03/25] ibuprofen 400 mg tablet 800 mg (2 x 400 mg) PO Q8H PRN See Comments #30 tabs 07/16/18 [Rx Confirmed 07/03/25] cyclobenzaprine 5 mg tablet 5 mg PO TID PRN muscle spasm #14 tabs 10/26/19 [Rx Confirmed 07/03/25] ibuprofen 800 mg tablet 800 mg PO TID PRN pain #30 tabs 10/26/19 [Rx Confirmed 07/03/25] cyclobenzaprine 5 mg tablet 5 mg PO TID PRN muscle spasm #20 tabs 02/22/21 [Rx Confirmed 07/03/25] naproxen 500 mg tablet 500 mg PO BID PRN pain #30 tabs 02/22/21 [Rx Confirmed 07/03/25] doxylamine 10 mg-pyridoxine (vit B6) 10 mg tablet,delayed release (Diclegis) 1 tab PO TID #90 tabs 04/23/25 [Rx Confirmed 07/03/25] ondansetron 4 mg disintegrating tablet 4 mg PO Q8H PRN nausea and vomiting #28 tabs 04/23/25 [Rx Confirmed 07/03/25] ondansetron HCl 4 mg tablet 4 mg PO Q6H #30 tabs 04/23/25 [Rx Confirmed 06/06 ] ondansetron 4 mg disintegrating tablet 4 mg PO Q6H PRN nausea and vomiting 30 days #120 tabs 05/17/25 [Rx Confirmed 07/03/25] Immunizations Immunizations Flu Vaccine in the Last 12 Months: Yes Flu Vaccine Exclusion Criteria: Already Received Care OB Visit Log OB Flowsheet Initial Weight: Not Recorded Date -?-?-?-?-?-?-?-?-?-?--?-?- EGA Weight BP Alb Glu CTX Pres Fundal ht FHR Mov Dilation Station Effacement Hx Notes Visit Note 04/23/25 -?-?-?-?-?-?-?-?-?-?-?-?- 6w 3d 147.077 kg 123/89 A -?-?-?-?-?-?-?-?-?-?-?-?- B 04/24/25 -?-?-?-?-?-?-?-?-?-?-?-?- 6w 4d 148.041 kg 125/85 A -?-?-?-?-?-?-?-?-?-?-?-?- B 05/07/25 -?-?-?-?-?-?-?-?-?-?-?-?- 8w 3d 156.943 kg 128/80 A -?-?-?-?-?-?-?-?-?-?-?-?- B 06/04/25 -?-?-?-?-?-?-?-?-?-?-?-?- 12w 3d 148.495 kg 119/83 A 159 -?-?-?-?-?-?-?-?-?-?-?-?- B 157 07/03/25 -?-?-?-?-?-?-?-?-?-?-?-?- 16w 4d 149.685 kg 101/72 A 151 -?-?-?-?-?-?-?-?-?-?-?-?- B 150 29 years old with twin / Diamniotic twins VERENA Calculator Estimated Delivery Date Method Current WG Current Estimate 12/14/25 Ultrasound #1 16w 4d # 2 Notes Visit Date: 07/03/25 Last Updated by: Heather Cotton MD N/ vomiting getting better / Order HIV, rubella, HepB and Hep C and and AB O/RH now / Has anatomy scan on 07/17/2025/ MSAFP ordered as well / NIPT negative for Downs Visit Date: 06/04/25 Last Updated by: Heather Cotton MD 29 years old with twin N/Vomiting of is getting better / diamniotic twins / will refer for anatomy scan and also consultation and also order NIPT/ Carrier screen is negative / her Hb aic is normal / follow up in 4 weeks / Plan MSAFP/ and also hepB/ HIV and Abo/Rh and rubella and at that visit if unable to get labs by then / reviewed ;abs and will need the order next visit Visit Date: 05/07/25 Last Updated by: Heather Cotton MD 29 years old with twin N/Vomiting of on Zofran/ Pap/HPV negative from 04/23/2025 and vag c/s positive for sabi but asymptomatic , so colonization and not infection and does not need treatment at this time / needs a root canal and needs note for dental clearance / ordered labs / NIPT and carrier testing h/o weed use obesity Plan follow up in 4 weeks / continue Zofran and also take gummies Visit Date: 04/24/25 Last Updated by: Heather Cotton MD was in ED on 04/23/2025 . did well on Zofran Zofran po called in and also Diclegis and follow up on 05/07/2025 Patient feels better Visit Date: 04/23/25 Last Updated by: Heather Cotton MD 29 years old and with N/V today / was in ED on 04/20/2025 . states she is not keeping anything down she has been smoking weed for a long time , states stopped 2 days ago Us vaginal done 04/20/2025 c/w 6 weeks twin feels weak To go to ED / for assessment for hyperemesis and iv hydration Plan Diclegis and zofran and follow up in 2 to 3 weeks pap smear done today Utreus about 8 to 10 weeks and vaginal c/s taken as well / will Office Procedures OBC Clinic LOC & Office Proc's Nursing/Assessment Patient Status: Established Patient OB Clinic Nursing Assessment: Medication Reconciliation, Update PMH in EMR and Vital Signs OB Clinic Coordination of Care: Complex Care and Chronic Disease 1-5, Education Complex Pt/Fam, Consent,records obtained, informed consent, Lab and Imaging orders, Results/Orders obtained and Staff clarify orders Special Needs: Heart tones Established Patient Charge Established Patient Point Assignment: 140 Established Patient Point Charge: EP Level 4 (120-155) Assessment & Plan Diagnosis / Problem List (1) Nausea and vomiting during : Status: Acute Assessment and Plan: improving a lot (2) Twin : Status: Acute Qualifiers: Multiple gestation type: dichorionic and diamniotic Trimester: first trimester Qualified Code(s): O30.041 - Twin , dichorionic/diamniotic, first trimester Assessment and Plan: has anatomy scan on Jul 17/ Diamniotic twins Plan MSAFP and labs ordered / continue PNV Additional Plan 4 weeks Follow Up: 4 Weeks
== END 2025-07-03 10:30 | disposition home or self-care (01) ==
LOC: HODSOBC 09:22
PROVIDERS: Supervising Provider Obstetrics & Gynecology; Visit Provider Obstetrics & Gynecology
DX: O09.892 Supervision of other high risk pregnancies, second trimester (principal); O21.9 Vomiting of pregnancy, unspecified; O30.002 Twin pregnancy, unspecified number of placenta and unspecified number of amniotic sacs, second trimester; Z3A.16 16 weeks gestation of pregnancy; Z88.5 Allergy status to narcotic agent; Z88.0 Allergy status to penicillin; Z91.0110 Allergy to milk products, unspecified
CPT/HCPCS: 99214; G0463